=== PATIENT | female | born 1965 | race Caucasian/White ===

== ENCOUNTER 2023-08-27 12:42 | Outpatient (CLI) | payer OTHER | END 2023-08-27 12:46 | disposition home or self-care (01) | LOC: SONOGRAMA 12:42 | PROVIDERS: ATTEND Pathology Anatomic Pathology & Clinical Pathology | DX: D34 Benign neoplasm of thyroid gland (principal); E07.89 Other specified disorders of thyroid; E04.2 Nontoxic multinodular goiter ==